=== PATIENT | male | born 1955 | race Caucasian/White ===

== ENCOUNTER 2025-04-18 19:27 | Emergency (ER) | payer MEDICARE, BC, SELFPAY ==
[2025-04-18 19:34] VITALS: BP 171/90
[2025-04-18 19:51] VITALS: BMI 31.7
[2025-04-18 19:54] VITALS: BP 153/81
[2025-04-18 20:00] VITALS: BP 149/96
[2025-04-18] MEDS: BENADRYL 25 MG PO (20:15)
[2025-04-18] MEDS: DUONEB 3 ML INH ×2 (20:15→20:16)
[2025-04-18] MEDS: DELTASONE 50 MG PO (20:15)
[2025-04-18 21:00] VITALS: BP 151/69
[2025-04-18 22:00] VITALS: BP 155/79
--- NOTE | 2025-04-18 22:42 | ED.GENMED ---
History of Present Illness
General
Chief Complaint: Allergic Reaction
Source: patient and spouse
Time Seen by Provider: 04/18/25 19:49
History of Present Illness
History of Present Illness:
Note:
CHIEF COMPLAINT(S)
Difficulty breathing after exposure to shellfish.
HISTORY OF PRESENT ILLNESS
The patient is a 70-year-old male with a known shellfish allergy who presented with difficulty breathing after exposure to a cooking class where they were cooking shrimp. He reported that upon exposure, he began to experience breathing difficulties
that worsened after stepping outside into the cold air. The patient denies any lip or tongue swelling and has no hives. The patient stated, 'I just, I just, they were aerosolizing shrimp.' He has a history of asthma, which he manages with medication
but has not required frequent use recently.
Spouse states that he really has not had much wheezing in this past but does have a history of asthma
Past medical history
Asthma
ALLERGIES
Shellfish
MEDICATIONS
The patient mentioned the use of medication for asthma management, although not specifying the exact medication or regimen currently being used.
REVIEW OF SYSTEMS
- Respiratory: Difficulty breathing, worsened by cold air, bilateral wheezing. No lip swelling, tongue swelling, or hives noted.
PHYSICAL EXAM
General: Alert, no acute distress.
Skin: Warm, dry. No rash or hives.
Head: Normocephalic, atraumatic.
Neck: Supple, trachea midline.
Eye Ears, nose, mouth and throat: Oral mucosa moist.
Cardiovascular: Normal peripheral perfusion, No edema.
Respiratory: Respirations are non-labored. Wheezing bilaterally, good air movement, airway patent.
Gastrointestinal: Abdomen nondistended
Back: Normal range of motion, Normal alignment.
Musculoskeletal: Normal ROM, normal strength.
Neurological: Alert and oriented to person, place, time, and situation, No focal neurological deficit observed.
Psychiatric: Cooperative, appropriate mood & affect.
PLAN
- Administered Duoneb (a combination of albuterol and ipratropium) nebulization treatment.
- Administered oral prednisone to combat airway inflammation due to allergic reaction.
- Administered Benadryl to address any potential allergic reaction.
- Monitor respiratory response to treatments; escalate care (e.g., initiate intravenous access) if no improvement or if condition worsens.
DIFFERENTIAL DIAGNOSIS
The Differential Diagnosis includes, in no particular order and is not limited to:
1. Allergic reaction to shellfish
2. Asthma exacerbation
3. Anaphylaxis
4. Upper respiratory tract infection
5. Chronic obstructive pulmonary disease exacerbation
6. Cardiac-related pulmonary edema
7. Vocal cord dysfunction
8. Pulmonary embolism
9. Gastroesophageal reflux disease leading to aspiration
10. Non-cardiogenic pulmonary edema
Disposition:
SUMMARY OF ENCOUNTER
The patient, a 70-year-old male with a known shellfish allergy and history of asthma, presented to the emergency department with difficulty breathing after exposure to aerosolized shrimp. He reported wheezing that worsened upon exiting into cold
air. Upon reassessment, the patients wheezing resolved, and he noted significant improvement in his breathing. His oxygen saturation levels were normal, and he remained afebrile.
EMERGENCY TREATMENTS ADMINISTERED
The patient was administered Duoneb (a combination of albuterol and ipratropium) nebulization treatment, oral prednisone for airway inflammation, and diphenhydramine for any potential allergic reaction.
ASSESSMENT
The patients symptoms were consistent with an allergic reaction to shellfish, likely an exacerbation of asthma due to exposure to aerosolized shrimp.
PLAN
The patient was advised to avoid all environments with potential shellfish exposure. A prescription for prednisone was given, with the advice that it does not need to be filled if he continues to feel well the following day. Additionally, albuterol
was prescribed for home use to manage any potential asthma symptoms.
PATIENT EDUCATION AND COUNSELING
The patient was counseled on the avoidance of shellfish and instructed on using albuterol and prednisone as prescribed. He was advised that if his symptoms return or worsen, he should seek immediate medical attention.
FOLLOW-UP INSTRUCTIONS
The patient was advised to schedule a follow-up appointment with their primary care physician for ongoing management of asthma and shellfish allergy.
MEDICATION RECONCILIATION
- Albuterol prescribed for home use.
- Prednisone prescribed, with instructions not to fill if the patient continues to feel well tomorrow.
MEDICAL DECISION MAKING
-Complexity of Data Reviewed: Chronic conditions affecting care include shellfish allergy and asthma. The differential diagnosis included an allergic reaction to shellfish and asthma exacerbation.
Risk: Prescription medication was prescribed including albuterol for asthma management and prednisone for allergic reaction control.
DIAGNOSIS
- Allergic reaction to shellfish (ICD-10: Z91.010)
- Asthma exacerbation (ICD-10: J45.901)
Past History
Past History
ED Past Medical History: None
ED Past Surgical History: None
Phy Exam
Physical Exam
Physical Exam:
.
Course
Orders/Labs/Results
Orders:
Orders
04/18/25 20:07
Diphenhydramine [Benadryl] 25 mg PO NOW STA
Ipratropium/Albuterol Sulfate [Duoneb] 3 ml INH R NOW STA
Ipratropium/Albuterol Sulfate [Duoneb] 3 ml INH R NOW STA
Prednisone [Deltasone] 50 mg PO NOW STA
Vital Signs
Initial and Last Documented VS:
Initial Vital Signs
Temp Pulse Resp BP Pulse Ox
98.0 F 100 20 171/90 93
04/18/25 19:34 04/18/25 19:34 04/18/25 19:34 04/18/25 19:34 04/18/25 19:34
Last Documented Vital Signs
Temp Pulse Resp BP Pulse Ox
98.0 F 100 20 171/90 93
04/18/25 19:34 04/18/25 19:34 04/18/25 19:34 04/18/25 19:34 04/18/25 19:34
*Pulse Oximetry
SaO2: 98
Oxygen Mode of Delivery: Room air
Patient hypoxic: no
*Critical Care Note
Total Time (30-74mins, 75-104mins- exclusive of procedures): Not Applicable
ED Attending Note
-
Portions of this chart may have been created with voice recognition software.� Occasional wrong word or��sound alike� substitutions may have occurred due to the inherent limitations of voice recognition software.
Discharge Plan
Departure
Patient Disposition: Home (Routine Discharge)
Date of Disposition: 04/18/25
Time of Disposition: 22:42
Patient with high blood pressure during this ER visit?: Yes
Discharge Problem:
Acute bronchospasm, Allergic reaction
Instructions: Wheezing in adults, Allergic reaction - ED (DC)
Prescriptions:
New
prednisone 50 mg tablet
50 mg PO DAILY Qty: 5 0RF
albuterol sulfate [Ventolin HFA] 90 mcg/actuation HFA aerosol inhaler
2 puff inhalation Q6H PRN (Reason: shortness of breath or wheezing) Qty: 6.7 0RF
No Action
fluticasone propion-salmeterol [Wixela Inhub] 250-50 mcg/dose Blister With Device
1 inh INHALATION DAILY
atorvastatin 20 mg Tablet
20 mg PO DAILY
triamterene-hydrochlorothiazid [Dyazide] 37.5-25 mg Capsule
1 cap PO DAILY
amlodipine 10 mg Tablet
10 mg PO DAILY
metoprolol succinate 25 mg Tablet Extended Release 24 Hr
25 mg PO DAILY
spironolactone [Aldactone] 50 mg Tablet
75 mg PO DAILY
mesalamine [Pentasa] 500 mg Capsule, Extended Release
1,500 mg PO DAILY
omeprazole 20 mg Tablet,Delayed Release (Dr/Ec)
20 mg PO DAILY
cholecalciferol (vitamin D3) [Vitamin D3] 50 mcg (2,000 unit) Capsule
50 mcg PO DAILY
Referrals:
Ricki Leyva MD [Family Provider, Family Practice]
Activity Restrictions/Additional Instructions:
You may use Benadryl as needed for any further reactions. Return immediate for shortness of breath, worsening symptoms, rash, swelling of any kind or any other concerns.
Interventions
Interventions:
*Risk Screen - Suicide Last Done: 04/18/25 19:34
*General Assessment Last Done: 04/18/25 19:34
*Neglect/Abuse Screening Last Done: 04/18/25 19:57
*ED COVID-19 Vaccine History Last Done: 04/18/25 19:57
*ED Influenza Vaccine History Last Done: 04/18/25 19:57
ED- Cardiac Assessment Last Done: 04/18/25 19:57
ED- Pulmonary Assessment Last Done: 04/18/25 19:57
ED-Skin Assessment Last Done: 04/18/25 19:59
Discharge Date and Time
Print Language: AZERI
== END 2025-04-18 22:56 | disposition home or self-care (01) ==
LOC: EMR 19:27
PROVIDERS: EMERGENCY PHYSICIAN Emergency Medicine; FAMILY PHYSICIAN Family Medicine
DX: J98.01 Acute bronchospasm (principal); T78.19XA Other adverse food reactions, not elsewhere classified, initial encounter; X58.XXXA Exposure to other specified factors, initial encounter; Z91.013 Allergy to seafood
CPT/HCPCS: 99284; 94640